=== PATIENT | female | born 1960 | race Caucasian/White ===

== ENCOUNTER 2018-05-10 05:48 | Day surgery (SDC) | payer OTHER ==
[~2018-05-10] VITALS: Ht 162.6 cm; Wt 82.9 kg
[~2018-05-10 05:48] MED LIST: ATEN100T PO; HYDR-2059 PO; HYDR25TA6 PO; LEVO300T5 PO; LOSA100T3 PO; STEROID PO
[2018-05-10 06:59] VITALS: Ht 162.6 cm; Wt 82.9 kg
[2018-05-10] MEDS ORDERED: CARVEDILOL (07:16)
[2018-05-10] MEDS ORDERED: HYDRALAZINE (07:16)
[2018-05-10] MEDS ORDERED: NIFEDIPINE (07:16)
[2018-05-10 07:27] VITALS: BP 151/70; PULSE 55; RESP 14
[2018-05-10] MEDS ORDERED: FENTAnyl 50 MCG/ML VIAL ONE (08:13)
[2018-05-10] MEDS ORDERED: MIDAZOLAM 1 MG/ML 2 ML INJ ONE (08:13)
[2018-05-10 08:38] VITALS: BP 146/76; RESP 12
--- NOTE | 2018-05-10 11:54 | CONS ---
DATE OF ADMISSION: 05/10/2018 DATE OF CONSULTATION: PATIENT NAME: YESENIA JAEGER TYPE OF CONSULTATION: Preoperative gastroenterology. I thank you very much for this kind referral. HISTORY OF PRESENT ILLNESS: Ms. Yesenia Jaeger is a 58-year-old female patient who has been referred to me for further evaluation of upper abdominal pain. The patient states she has got upper abdominal pain not responding to symptomatic medical therapy. No past history of peptic ulcer disease. Not o n nonsteroidal anti-inflammatory agents. Her appetite has been somewhat poor and she states that she has been losing weight. There is no history of gallstones or liver disease. The patient recently h ad rectal bleeding for which she underwent colonoscopic examination done by another gastroenterologis t. She was noted to have blood all over the colon. She had diverticulosis. No colon neoplasm was i dentified. She underwent capsule endoscopy report and the report is not available. She was on Plavi x and the patient has been advised to stop Plavix and the bleeding has stopped. She was taking Plavi x for stroke. She is hypertensive. Not a diabetic. No heart disease, lung problem or kidney diseas e. She has got hyperlipidemia and hypothyroidism. SOCIAL HISTORY: Nonsmoker. No alcohol abuse. FAMILY HISTORY: No family history of gastrointestinal tract neoplasm. ALLERGIES: NO DRUG ALLERGIES. MEDICATIONS: 1. Nifedipine. 2. Hydralazine. 3. Losartan. 4. Carvedilol. 5. Hydrochlorothiazide. 6. Atorvastatin. 7. Levothyroxine. PHYSICAL EXAMINATION: VITAL SIGNS: She is 5 feet, 4 inches tall and weighs 182 pounds. HEART: Normal heart sounds. LUNGS: Clear. ABDOMEN: Soft. No masses. Normal bowel sounds. NEUROLOGIC: Normal. IMPRESSION: 1. Upper abdominal pain, not responding to therapy. 2. The patient complains of loss of appetite and weight loss. 3. History of recent rectal bleeding for which she underwent colonoscopy. 4. The patient was noted to have blood all over the colon and she had diverticulosis of the colon. No colon neoplasm was identified. 5. She underwent capsule endoscopy of the small bowel and the report is not available at the present time. 6. The patient has been advised to stop Plavix and no recurrent bleeding. 7. History of stroke and she was taking Plavix because of that. 8. Hypertension. 9. Hyperlipidemia. 10. Hypothyroidism. 11. The patient complains of constipation. PLAN: 1. Advised high fiber diet. 2. MiraLax 17 grams dissolved in a glass of water p.o. daily for constipation. 3. The patient was strongly advised to see the neurologist right away to decide whether she really n eeds the blood thinner for the prevention of stroke. 4. If she needs a blood thinner, definitely she has to be restarted on the blood thinner to avoid an other stroke. 5. By taking the blood thinner of course, there is another risk for rebleeding but the gastrointesti nal tract bleeding is controllable and stroke is a much more serious problem. 6. Endoscopic examination for further evaluation of upper abdominal pain. The procedure and possible complications are well explained to the patient. She understands and cons ents to the procedure. I thank you once again. With warmest personal regards, Dictated By: FRANCIA WALL/SHAQ Conf#: [id number] DID#: [id number]
== END 2018-05-10 12:33 | disposition home or self-care (01) ==
LOC: GIL 05:48
PROVIDERS: ATTEND Internal Medicine Gastroenterology
DX: K44.9 Diaphragmatic hernia without obstruction or gangrene (principal); K21.9 Gastro-esophageal reflux disease without esophagitis; K29.60 Other gastritis without bleeding; I10 Essential (primary) hypertension; E11.9 Type 2 diabetes mellitus without complications; E03.9 Hypothyroidism, unspecified
CPT/HCPCS: 43239; 88305; 88312; J2250; J3010